=== PATIENT | female | born 1940 | race Caucasian/White ===

== ENCOUNTER 2020-04-28 18:14 | Emergency (ER) | payer MEDICARE, BC ==
[~2020-04-28] VITALS: Ht 170.2 cm; Wt 64.4 kg
[~2020-04-28 18:14] MED LIST: AMLODIPINE BESYL5 MG PO; ASPIR 8181 MG PO; ATORVASTATIN CA10 MG PO; Acetaminophen PO; CALCIUM CARBON500 MG PO; DIOVAN160 MG PO; FISH OIL500 MG PO; GLUCOSAMINE1000 MG PO; LUTEIN 15 MG S1 EACH PO; MULTIVITAMINS1 EACH PO; NEXIUM40 MG PO; PREMARIN0.625 MG PO; RESTASIS1 EACH OP; SUCRALFATE1 GM PO; SYNTHROID112 MCG PO; VITAMIN B-121000 MCG PO; VITAMIN C1000 MG PO; VITAMIN D1000 UNIT PO
[2020-04-28 19:08] LABS: BASOPHILS % 0.4 % (0.0-1.0); EOSINOPHILS # (AUTO) 0.1 (0.0-0.4); EOSINOPHILS % 2.2 % (0.0-6.0); HEMATOCRIT 40.9 % (34.2-44.1); LYMPHOCYTES # (AUTO) 1.4 (1.0-3.2); LYMPHOCYTES % 28.3 % (18.0-39.1); MEAN CORPUSCULAR HEMOGLOBIN 31.2 pg (28-32); MEAN CORPUSCULAR HGB CONC 34.2 g/dL (31-35); MEAN CORPUSCULAR VOLUME 91.1 fL (81-99); MONOCYTES # (AUTO) 0.5 (0.2-0.8); MONOCYTES % 10.2 % (4.4-11.3); NEUTROPHILS % 58.7 % (38.7-80.0); PLATELET COUNT 255 x10e3/uL (140-360); RED BLOOD COUNT 4.49 x10e6/uL (3.6-5.1); RED CELL DISTRIBUTION WIDTH 11.9 % (11.7-14.4)
[2020-04-28 19:40] LABS: ALBUMIN 4.3 g/dL (3.5-5.0); ALBUMIN/GLOBULIN RATIO 1.3 (0.8-2.0); ANION GAP 15.4 mmol/L (8-16); CALCIUM 9.3 mg/dL (8.4-10.2); CREATININE, SERUM 0.95 mg/dL (0.57-1.11); POTASSIUM 3.4 mmol/L (3.5-5.1)
[2020-04-28 20:06] LABS: CLARITY,URINE SL CLOUDY (CLEAR); COLOR,URINE YELLOW (YELLOW)
[2020-04-28 20:07] LABS: KETONES,URINE NEGATIVE (NEGATIVE); LEUKOCYTE ESTERASE ,URINE SMALL (NEGATIVE); NITRITE,URINE NEGATIVE (NEGATIVE); PROTEIN,URINE DIPSTICK NEGATIVE (NEGATIVE); URINE UROBILINOGEN 0.2 mg/dL (0.2 - 1)
[2020-04-28 20:24] LABS: RBC,URINE 0-5 /HPF (0-5)
[2020-04-28 20:25] LABS: BACTERIA,URINE RARE /HPF; EPITHELIAL CELLS,URINE RARE /LPF
[2020-04-28 21:18] VITALS: BP 144/65
== END 2020-04-28 21:25 | disposition home or self-care (01) ==
LOC: ER 19:32
DX: I10 Essential (primary) hypertension (principal); R07.89 Other chest pain; E78.5 Hyperlipidemia, unspecified; E03.9 Hypothyroidism, unspecified; D86.9 Sarcoidosis, unspecified
CPT/HCPCS: 36415; 80053; 81001; 83880; 84484; 85025; 93005; 99283